=== PATIENT | female | born 1960 | race American Indian/Alaskan Native ===

== ENCOUNTER 2018-06-22 16:10 | Emergency (ER) | payer BC ==
[2018-06-22 16:26] VITALS: TEMP 98.4
--- NOTE | 2018-06-22 18:08 | C.PDOC ---
History Of Present Illness 57 year old female presents to the ED for evaluation of high blood. Patient states that she took her blood pressure last night and it was in the 200s and when she took it again it was 165/93. Patient has a PMHx of kidney transplant in 2003 with no complications. Patient states that last night she felt a pressure like sensation in the right side of her head. Patient states that she noticed a few hours later her right eye was red. She states that she is currently taking metoprolol and nifedipine. She states it feels like someone stuck a pin in my eye. Patient denies blurry vision, headache, chest pain, SOB, lightheadedness, and recent falls. Time Seen by Provider: 06/22/18 16:57 Chief Complaint (Nursing): High Blood Pressure History Per: Patient History/Exam Limitations: no limitations Onset/Duration Of Symptoms: Days (1) Current Symptoms Are (Timing): Still Present Associated Symptoms: denies: Blurred Vision Past Medical History Reviewed: Historical Data, Nursing Documentation, Vital Signs Vital Signs: Last Vital Signs Temp 98.4 F 06/22/18 16:22 Pulse 77 06/22/18 16:22 Resp 18 06/22/18 16:22 BP 150/89 06/22/18 16:22 Pulse Ox 98 06/22/18 16:22 - Medical History PMH: HTN, Hypercholesterolemia Surgical History: No Surg Hx Family History: States: Unknown Family Hx - Social History Hx Tobacco Use: No Hx Alcohol Use: No Hx Substance Use: No - Immunization History Hx Tetanus Toxoid Vaccination: No Hx Influenza Vaccination: No Hx Pneumococcal Vaccination: No Review Of Systems Eyes: Positive for: Redness (right eye). Negative for: Vision Change (blurry vision) Cardiovascular: Negative for: Chest Pain, Light Headedness Respiratory: Negative for: Shortness of Breath Neurological: Negative for: Weakness, Numbness, Headache Physical Exam - Physical Exam Appears: Non-toxic, No Acute Distress Skin: Normal Color, Warm, Dry Head: Atraumatic, Normacephalic Eye(s): right: Other (subconjunctival hemorrhage) Neck: Normal ROM, Supple Chest: Symmetrical, No Deformity Cardiovascular: Rhythm Regular, No Murmur Respiratory: No Accessory Muscle Use, No Rales, No Rhonchi, No Wheezing Gastrointestinal/Abdominal: Soft, No Tenderness Extremity: Capillary Refill (<2 seconds) Neurological/Psych: Oriented x3, Normal Speech, Normal Cognition ED Course And Treatment - Laboratory Results Result Diagrams: 06/22/18 18:17 06/22/18 18:17 Lab Interpretation: Normal (baseline creat, no prior to compare, trop/bnp neg.) ECG: Interpreted By Me ECG Rhythm: Sinus Rhythm ECG Interpretation: Normal Rate From EC O2 Sat by Pulse Oximetry: 98 (in RA) - Radiology CXR: Interpreted by Me CXR Interpretation: Yes: No Acute Disease Progress Note: CXR and EKG ordered for patient. Labs ordered with CMP, CBC, UA. Reevaluation Time: 19:09 Reassessment Condition: Unchanged Medical Decision Making Medical Decision Making: baseline BP and creat 1.6 (no prior to compare) s/p renal transplant no bp med changes in ED opt f/u with Dr. Jones appropriate Disposition Doctor Will See Patient In The: Office Counseled Patient/Family Regarding: Studies Performed, Diagnosis - Disposition Disposition: HOME/ ROUTINE Disposition Time: 19:10 Condition: GOOD Forms: [email or web address] (Armenian) - Clinical Impression Clinical Impression: Blood pressure check - Scribe Statement The provider has reviewed the documentation as recorded by the Scribe (Jolanta Suggs) All medical record entries made by the Scribe were at my direction and personally dictated by me. I have reviewed the chart and agree that the record accurately reflects my personal performance of the history, physical exam, medical decision making, and the department course for this patient. I have also personally directed, reviewed, and agree with the discharge instructions and disposition.
[2018-06-22 18:35] LABS: BASO # 0.1 K/uL (0.0-0.2); BASO % 1.2 % (0.0-2.0); EOS # 0.2 K/uL (0.0-0.7); EOS % 3.6 % (0.0-4.0); HEMOGLOBIN 12.3 g/dL (11.0-16.0); LYMPH # 1.5 K/uL (1.0-4.3); LYMPH % 28.6 % (20.0-40.0); MEAN CORPUSCULAR HEMOGLOBIN 29.4 pg (27.0-31.0); MEAN PLATELET VOLUME 9.3 fL (7.2-11.7); MONO # 0.7 K/uL (0.0-0.8); MONO % 13.5 % (0.0-10.0); NEUT # 2.7 K/uL (1.8-7.0); NEUT % 53.1 % (50.0-75.0); NRBC % 0.1 % (0.0-2.0); RBC 4.18 Mil/uL (3.80-5.20); WHITE BLOOD COUNT 5.1 K/uL (4.8-10.8)
[2018-06-22 18:37] LABS: SQUAMOUS EPITHIAL 2 /hpf (0-5); URINE BACTERIA RARE (<OCC); URINE BILIRUBIN NEGATIVE (NEGATIVE); URINE BLOOD 1+ (NEGATIVE); URINE CLARITY Hazy (Clear); URINE COLOR Yellow (YELLOW); URINE GLUCOSE (UA) NORMAL (Normal); URINE LEUKOCYTE ESTERASE NEG Leu/uL (Negative); URINE PROTEIN 2+ mg/dL (NEGATIVE)
[2018-06-22 18:41] LABS: BLOOD UREA NITROGEN 19 mg/dL (7-17); CALCIUM 9.7 mg/dl (8.6-10.4); GFR NON-AFRICAN AMERICAN 33
[2018-06-22 18:44] LABS: ALBUMIN 4.2 g/dL (3.5-5.0); ALT/SGPT < 6 U/L (9-52); AST/SGOT 37 U/L (14-36)
[2018-06-22 18:52] LABS: B-TYPE NATRIURETIC PEPTIDE 359 pg/mL (0-900)
--- NOTE | 2018-06-22 19:00 | RAD ---
HISTORY: SOB COMPARISON: Chest x-ray performed 12/16/15 TECHNIQUE: Chest PA and lateral, 2 views FINDINGS: LUNGS: No focal consolidation. Please note that chest x-ray has limited sensitivity for the detection of pulmonary masses. PLEURA: No significant pleural effusion identified. No definite pneumothorax . CARDIOVASCULAR: The cardiomediastinal silhouette appears within normal limits of size. No atherosclerotic calcification present. OSSEOUS STRUCTURES: No acute osseous abnormality identified. VISUALIZED UPPER ABDOMEN: Unremarkable. OTHER FINDINGS: None. IMPRESSION: No focal consolidation.
[2018-06-22 19:35] VITALS: BP 157/86; PULSE 78; RESP 20; O2SAT 99
--- NOTE | 2018-06-23 10:51 | CARD ---
APPROVED REPORT Date of service: 06/22/2018 EKG Measurement Heart [id number] AR [id number] [id number] <Conclusion> Normal sinus rhythm Normal ECG
== END 2018-06-22 19:33 | disposition home or self-care (01) ==
LOC: C.ER 16:10
DX: Z01.30 Encounter for examination of blood pressure without abnormal findings (principal); I10 Essential (primary) hypertension; E78.00 Pure hypercholesterolemia, unspecified; Z94.0 Kidney transplant status